=== PATIENT | female | born 1990 | race American Indian/Alaskan Native ===

== ENCOUNTER 2021-05-11 11:41 | Emergency (ER) | payer SELFPAY ==
[2021-05-11] MEDS ORDERED: hydrALAZINE 20 MG/1 ML INJ IV ONE (13:42)
[2021-05-11 14:55] LABS: Basophils # (Auto) 0.1 K/mm3 (0.0-0.1); Basophils % (Auto) 1.5 % (0.0-1.8); Eosinophils # (Auto) 0.2 K/mm3 (0.0-0.4); Eosinophils % (Auto) 2.7 % (0.0-4.3); Hemoglobin 16.9 gm/dl (10.1-14.3); Lymphocytes # (Auto) 2.9 K/mm3 (1.2-5.4); Lymphocytes % (Auto) 33.9 % (13.4-35.0); Mean Corpuscular HGB Conc 32 % (30-34); Mean Corpuscular Volume 88 fl (79-97); Monocytes # (Auto) 0.8 K/mm3 (0.0-0.8); Monocytes % (Auto) 9.3 % (0.0-7.3); Platelet Count 241 K/mm3 (140-440); Red Blood Count 6.03 M/mm3 (3.65-5.03); Red Cell Distribution Width 16.8 % (13.2-15.2)
[2021-05-11 15:04] LABS: Alanine Aminotransferase 15 units/L (7-56); Albumin 3.7 g/dL (3.9-5); BUN/Creatinine Ratio 18; Blood Urea Nitrogen 11 mg/dL (7-17); Calcium 8.6 mg/dL (8.4-10.2); Hemolysis Index 30
[2021-05-11] MEDS ORDERED: LEVALBUTEROL 0.63 MG/3 ML NEBU IH ONE (15:17)
[2021-05-11] MEDS ORDERED: FUROSEMIDE 20 MG/2 ML INJ IV ONE ×2 (15:33→17:30)
--- NOTE | 2021-05-11 15:36 | Emergency Department Report ---
<XANDERCODIE - Last Filed: 05/11/21 19:06> ED Chest Pain HPI - General Chief Complaint: High BP Stated Complaint: HTN , SOB AND PAIN ON SIDE Time Seen by Provider: 05/11/21 13:32 - Related Data Home Medications Medication Instructions Recorded Confirmed Last Taken Losartan [Cozaar] 1 tab PO DAILY 05/11/21 05/11/21 Unknown Metformin HCl 500 mg PO BID 05/11/21 05/11/21 Unknown Previous Rx's Medication Instructions Recorded Last Taken Type Albuterol Sulfate [Ventolin HFA] 2 puff IH Q6H PRN #1 unit 03/08/14 Unknown Rx Losartan [Cozaar] 50 mg PO QDAY #30 tablet 05/11/21 Unknown Rx amLODIPine 10 mg PO DAILY #30 tab 05/11/21 Unknown Rx hydroCHLOROthiazide [HCTZ] 25 mg PO QDAY #30 tablet 05/11/21 Unknown Rx Allergies Allergy/AdvReac Type Severity Reaction Status Date / Time amoxicillin [Amoxicillin] Allergy Hives Verified 02/26/15 17:26 ED Past Medical Hx - Medications Home Medications: Home Medications Medication Instructions Recorded Confirmed Last Taken Type Albuterol Sulfate [Ventolin HFA] 2 puff IH Q6H PRN #1 unit 03/08/14 07/16/14 Unknown Rx Losartan [Cozaar] 1 tab PO DAILY 05/11/21 05/11/21 Unknown History Losartan [Cozaar] 50 mg PO QDAY #30 tablet 05/11/21 Unknown Rx Metformin HCl 500 mg PO BID 05/11/21 05/11/21 Unknown History amLODIPine 10 mg PO DAILY #30 tab 05/11/21 Unknown Rx hydroCHLOROthiazide [HCTZ] 25 mg PO QDAY #30 tablet 05/11/21 Unknown Rx ED Course - Reevaluation(s) Reevaluation #1: 05/11/21 19:07 Received signout from previous physician. Patient is a 30-year-old female, who is morbidly obese, tobacco user, not vaccinated against COVID-19, with a reported history of hypertension and CHF, diagnosed at [facility] last year, noncompliant with medications, coming with a few days of chest tightness, shortness of breath, and weakness. Nursing team reports that patient is very dyspneic, desaturating to 90/91% on room air. Patient has received multiple antihypertensive here in the emergency room, including Lasix, hydralazine, and labetalol. She is still very symptomatic. Discussed this with the patient. Have recommended admission for blood pressure control, and medical optimization. Patient reports that she is not , and has not delivered her given in the past 6 weeks. to admit patient to the medical service. Awaiting callback from cardiology on-call. - Consultations Consultation #1: 05/11/21 19:10 Discussed history, physical, laboratory studies and imaging studies with cardiology on-call, Dr. Dolan. He will follow in consultation. 05/11/21 19:11 ED Medical Decision Making - Lab Data Result diagrams: 05/11/21 14:29 05/11/21 14:29 Vital Signs 05/11/21 05/11/21 05/11/21 12:59 13:35 13:38 Temperature 99.0 F Pulse Rate 118 H Pulse Rate [ Bilateral] Respiratory 16 21 Rate Respiratory Rate [Bilateral ] Blood Pressure Blood Pressure 227/156 [Right] O2 Sat by Pulse 98 98 97 Oximetry 05/11/21 05/11/21 05/11/21 13:39 13:40 14:00 Temperature Pulse Rate 126 H 126 H 112 H Pulse Rate [ Bilateral] Respiratory 21 21 22 Rate Respiratory Rate [Bilateral ] Blood Pressure 210/156 182/132 Blood Pressure 210/156 [Right] O2 Sat by Pulse 97 97 98 Oximetry 05/11/21 05/11/21 05/11/21 14:07 14:25 14:30 Temperature Pulse Rate 109 H 110 H 116 H Pulse Rate [ Bilateral] Respiratory 16 26 H Rate Respiratory Rate [Bilateral ] Blood Pressure 182/132 186/127 Blood Pressure 182/132 [Right] O2 Sat by Pulse 98 97 Oximetry 05/11/21 05/11/21 05/11/21 15:00 15:11 15:29 Temperature Pulse Rate 112 H 119 H 115 H Pulse Rate [ Bilateral] Respiratory 29 H 18 Rate Respiratory Rate [Bilateral ] Blood Pressure 181/124 172/111 Blood Pressure 181/124 [Right] O2 Sat by Pulse 96 98 Oximetry 05/11/21 05/11/21 05/11/21 15:30 15:40 16:00 Temperature Pulse Rate 114 H 106 H Pulse Rate [ 98 H Bilateral] Respiratory 25 H Rate Respiratory 16 Rate [Bilateral ] Blood Pressure 172/111 179/121 Blood Pressure [Right] O2 Sat by Pulse 95 96 Oximetry 05/11/21 05/11/21 05/11/21 16:30 16:38 17:00 Temperature Pulse Rate 102 H 104 H 106 H Pulse Rate [ Bilateral] Respiratory 17 30 H 28 H Rate Respiratory Rate [Bilateral ] Blood Pressure 164/100 171/111 Blood Pressure 164/100 [Right] O2 Sat by Pulse 96 98 96 Oximetry 05/11/21 05/11/21 05/11/21 17:30 18:00 18:52 Temperature Pulse Rate 113 H 110 H 115 H Pulse Rate [ Bilateral] Respiratory 31 H 20 22 Rate Respiratory Rate [Bilateral ] Blood Pressure 171/111 192/124 Blood Pressure 195/123 [Right] O2 Sat by Pulse 96 95 97 Oximetry Lab Results 05/11/21 05/11/21 05/11/21 Range/Units 14:29 14:29 14:29 WBC 8.7 (4.5-11.0) K/mm3 RBC 6.03 H (3.65-5.03) M/mm3 Hgb 16.9 H (10.1-14.3) gm/dl Hct 53.0 H (30.3-42.9) % MCV 88 (79-97) fl MCH 28 (28-32) pg MCHC 32 (30-34) % RDW 16.8 H (13.2-15.2) % Plt Count 241 (140-440) K/mm3 Lymph % (Auto) 33.9 (13.4-35.0) % [place] % (Auto) 9.3 H (0.0-7.3) % Eos % (Auto) 2.7 (0.0-4.3) % Baso % (Auto) 1.5 (0.0-1.8) % Lymph # (Auto) 2.9 (1.2-5.4) K/mm3 [place] # (Auto) 0.8 (0.0-0.8) K/mm3 Eos # (Auto) 0.2 (0.0-0.4) K/mm3 Baso # (Auto) 0.1 (0.0-0.1) K/mm3 Seg Neutrophils % 52.6 (40.0-70.0) % Seg Neutrophils # 4.6 (1.8-7.7) K/mm3 D-Dimer 225.66 (0-234) ng/mlDDU Sodium 137 (137-145) mmol/L Potassium 4.0 (3.6-5.0) mmol/L Chloride 100.7 (98-107) mmol/L Carbon Dioxide 22 (22-30) mmol/L Anion Gap 18 mmol/L BUN 11 (7-17) mg/dL Creatinine 0.6 (0.6-1.2) mg/dL Estimated GFR > 60 ml/min BUN/Creatinine Ratio 18 % Glucose 148 H (65-100) mg/dL Calcium 8.6 (8.4-10.2) mg/dL Total Bilirubin 0.70 (0.1-1.2) mg/dL AST 16 (5-40) units/L ALT 15 (7-56) units/L Alkaline Phosphatase 117 (35-129) units/L Troponin T < 0.010 (0.00-0.029) ng/mL NT-Pro-B Natriuret Pep (0-450) pg/mL Total Protein 6.9 (6.3-8.2) g/dL Albumin 3.7 L (3.9-5) g/dL Albumin/Globulin Ratio 1.2 % HCG, Qual (Negative) 05/11/21 05/11/21 05/11/21 Range/Units 14:29 14:29 16:18 WBC (4.5-11.0) K/mm3 RBC (3.65-5.03) M/mm3 Hgb (10.1-14.3) gm/dl Hct (30.3-42.9) % MCV (79-97) fl MCH (28-32) pg MCHC (30-34) % RDW (13.2-15.2) % Plt Count (140-440) K/mm3 Lymph % (Auto) (13.4-35.0) % [place] % (Auto) (0.0-7.3) % Eos % (Auto) (0.0-4.3) % Baso % (Auto) (0.0-1.8) % Lymph # (Auto) (1.2-5.4) K/mm3 [place] # (Auto) (0.0-0.8) K/mm3 Eos # (Auto) (0.0-0.4) K/mm3 Baso # (Auto) (0.0-0.1) K/mm3 Seg Neutrophils % (40.0-70.0) % Seg Neutrophils # (1.8-7.7) K/mm3 D-Dimer (0-234) ng/mlDDU Sodium (137-145) mmol/L Potassium (3.6-5.0) mmol/L Chloride (98-107) mmol/L Carbon Dioxide (22-30) mmol/L Anion Gap mmol/L BUN (7-17) mg/dL Creatinine (0.6-1.2) mg/dL Estimated GFR ml/min BUN/Creatinine Ratio % Glucose (65-100) mg/dL Calcium (8.4-10.2) mg/dL Total Bilirubin (0.1-1.2) mg/dL AST (5-40) units/L ALT (7-56) units/L Alkaline Phosphatase (35-129) units/L Troponin T < 0.010 (0.00-0.029) ng/mL NT-Pro-B Natriuret Pep 1007 H (0-450) pg/mL Total Protein (6.3-8.2) g/dL Albumin (3.9-5) g/dL Albumin/Globulin Ratio % HCG, Qual Negative (Negative) - Radiology Data Radiology results: report reviewed CHEST 1 VIEW 05/11/2021 4:09 PM INDICATION / CLINICAL INFORMATION: SOB. COMPARISON: None available. FINDINGS: SUPPORT DEVICES: None. HEART / MEDIASTINUM: There is enlargement of the cardiac silhouette. LUNGS / PLEURA: There is increase in interstitial markings bilaterally likely representing edema. No pneumothorax. ADDITIONAL FINDINGS: No significant additional findings. IMPRESSION: 1. There is increase in interstitial markings likely representing edema. There is enlargement of the cardiac silhouette. Signer Name: James Lambert MD Signed: 05/11/2021 2:31 PM Workstation Name: [id number] ED Disposition Clinical Impression: Hypertensive urgency, malignant, Body mass index between 30-39, adult, Encounter for tobacco use cessation counseling, COVID-19 vaccination not done Acute CHF Qualifiers: Heart failure type: unspecified Qualified Code(s): I50.9 - Heart failure, unspecified Disposition: 09 ADMITTED INPATIENT Is pt being admited?: Yes Does the pt Need Aspirin: No Condition: Stable Prescriptions: amLODIPine 10 mg PO DAILY #30 tab Losartan [Cozaar] 50 mg PO QDAY #30 tablet hydroCHLOROthiazide [HCTZ] 25 mg PO QDAY #30 tablet Referrals: PRIMARY CARE, [Primary Care Provider] - 3-5 Days Forms: Work/School Release Form(ED) <JEFF SHABAZZ - Last Filed: 05/12/21 06:13> ED Chest Pain HPI - General Source: patient Mode of arrival: Ambulatory Limitations: No Limitations - History of Present Illness Initial Comments: 30-year-old -[place]i female presents to the emergency department with complaint of a 1 week history of some left-sided chest pain and shortness of breath with exertion. The chest pain is intermittent, sharp, and usually occurs at the patient is coughing. She denies any fever, lower extremity swelling, nausea, vomiting, back pain or diaphoresis. The patient does present with extremely elevated blood pressure but says that she has been out of her medication for multiple months. The patient was previously on losartan 100 mg and Metformin. She has a past medical history of hypertension, diabetes, asthma. She is a tobacco smoker. No recent travel or sick contacts at home. The patient is not vaccinated against COVID-19. She does not have a primary care provider. Heart Score - HEART Score History: Slightly suspicious EKG: Normal Age: < 45 Risk factors: > 3 risk factors or hx of atherosclerotic disease Troponin: < normal limit HEART Score: 2 - EKG Read Time Time EKG Completed: 13:46 EKG Read Time: 13:50 - Critical Actions Critical Actions: 0-3 pts:0.9-1.7%risk of adverse cardiac event.Candidate for discharge ED Review of Systems ROS: Stated complaint: HTN , SOB AND PAIN ON SIDE Other details as noted in HPI Comment: All other systems reviewed and negative Constitutional: denies: chills, fever Eyes: denies: eye pain, vision change ENT: denies: ear pain, throat pain Respiratory: cough, SOB with exertion Cardiovascular: chest pain. denies: edema Gastrointestinal: denies: abdominal pain, vomiting Genitourinary: denies: dysuria, discharge Musculoskeletal: denies: back pain, arthralgia Skin: denies: rash, lesions Neurological: denies: headache, weakness ED Past Medical Hx - Past Medical History Hx Hypertension: Yes Hx Diabetes: Yes Hx Asthma: Yes Additional medical history: Ovarian cysts - Social History Substance Use Type: None ED Physical Exam - General Limitations: No Limitations - Other Other exam information: GENERAL: The patient is well-developed well-nourished. HENT: Normocephalic. Atraumatic. Patient has moist mucous membranes. EYES: Extraocular motions are intact. NECK: Supple. Trachea is midline. CHEST/LUNGS: Coarse breath sounds. Mild tachypnea. There is no respiratory distress noted. HEART/CARDIOVASCULAR: Regular. There is mild to moderate tachycardia. There is no murmur. ABDOMEN: Abdomen is soft, nontender. Patient has normal bowel sounds. Morbidly obese habitus. SKIN: Skin is warm and dry. NEURO: The patient is awake, alert, and oriented. The patient is cooperative. The patient has no focal neurologic deficits. Normal speech. MUSCULOSKELETAL: There is no tenderness or deformity. There is no limitation range of motion. ED Course Vital Signs 05/11/21 05/11/21 05/11/21 12:59 13:35 13:38 Temperature 99.0 F Pulse Rate 118 H Pulse Rate [ Bilateral] Respiratory 16 21 Rate Respiratory Rate [Bilateral ] Blood Pressure Blood Pressure 227/156 [Right] O2 Sat by Pulse 98 98 97 Oximetry 05/11/21 05/11/21 05/11/21 13:39 13:40 14:00 Temperature Pulse Rate 126 H 126 H 112 H Pulse Rate [ Bilateral] Respiratory 21 21 22 Rate Respiratory Rate [Bilateral ] Blood Pressure 210/156 182/132 Blood Pressure 210/156 [Right] O2 Sat by Pulse 97 97 98 Oximetry 05/11/21 05/11/21 05/11/21 14:07 14:25 14:30 Temperature Pulse Rate 109 H 110 H 116 H Pulse Rate [ Bilateral] Respiratory 16 26 H Rate Respiratory Rate [Bilateral ] Blood Pressure 182/132 186/127 Blood Pressure 182/132 [Right] O2 Sat by Pulse 98 97 Oximetry 05/11/21 05/11/21 05/11/21 15:00 15:11 15:29 Temperature Pulse Rate 112 H 119 H 115 H Pulse Rate [ Bilateral] Respiratory 29 H 18 Rate Respiratory Rate [Bilateral ] Blood Pressure 181/124 172/111 Blood Pressure 181/124 [Right] O2 Sat by Pulse 96 98 Oximetry 05/11/21 05/11/21 05/11/21 15:30 15:40 16:00 Temperature Pulse Rate 114 H 106 H Pulse Rate [ 98 H Bilateral] Respiratory 25 H Rate Respiratory 16 Rate [Bilateral ] Blood Pressure 172/111 179/121 Blood Pressure [Right] O2 Sat by Pulse 95 96 Oximetry 05/11/21 05/11/21 05/11/21 16:30 16:38 17:00 Temperature Pulse Rate 102 H 104 H 106 H Pulse Rate [ Bilateral] Respiratory 17 30 H 28 H Rate Respiratory Rate [Bilateral ] Blood Pressure 164/100 171/111 Blood Pressure 164/100 [Right] O2 Sat by Pulse 96 98 96 Oximetry 05/11/21 05/11/21 05/11/21 17:30 18:00 18:52 Temperature Pulse Rate 113 H 110 H 115 H Pulse Rate [ Bilateral] Respiratory 31 H 20 22 Rate Respiratory Rate [Bilateral ] Blood Pressure 171/111 192/124 Blood Pressure 195/123 [Right] O2 Sat by Pulse 96 95 97 Oximetry 05/11/21 05/11/21 05/12/21 19:50 20:31 02:41 Temperature Pulse Rate 110 H 109 H 77 Pulse Rate [ Bilateral] Respiratory 20 17 Rate Respiratory Rate [Bilateral ] Blood Pressure 200/125 Blood Pressure 166/104 [Right] O2 Sat by Pulse 96 99 Oximetry GER score - Ger Score Age > 65: (0) No Aspirin use within the Past 7 Days: (0) No 3 or more CAD Risk Factors: (1) Yes 2 or more Angina events in past 24 hrs: (1) Yes Known CAD with more than 50% Stenosis: (0) No Elevated Cardiac Markers: (0) No ED Medical Decision Making - Lab Data Result diagrams: 05/11/21 14:29 05/11/21 14:29 - EKG Data -: EKG Interpreted by Me EKG shows normal: sinus rhythm, axis, intervals, QRS complexes, ST-T waves Rate: tachycardia (112 bpm) - EKG Data When compared to previous EKG there are: previous EKG unavailable Interpretation: normal EKG (With tachycardia 112 bpm) - Radiology Data Radiology results: image reviewed interpreted by me: Chest x-ray shows pulmonary vascular congestion and some interstitial edema. No pneumothorax. No widened mediastinum. - Medical Decision Making This patient presents with a week of intermittent left-sided chest discomfort, as well as some shortness of breath that worsens with exertion. Patient has some tachycardia but otherwise heart sounds are normal to auscultation. There are some coarse breath sounds heard. There is tachypnea but no accessory muscle use. EKG shows sinus tachycardia but otherwise no morphology consistent with ST elevation myocardial infarction. Chest x-ray shows some pulmonary vascular congestion and interstitial edema. Patient presented with extremely elevated blood pressure with a history of hypertension and medication noncompliance. The patient has been given a dose of hydralazine and labetalol with some improvement. Patient will be given a dose of Xopenex and a dose of Lasix. Labs have been mostly unremarkable thus far except for an elevated proBNP of about 1000. I am still waiting for a D-dimer level. If positive, the patient will need a CT angiography of the chest or a VQ scan. This patient will be signed out to my colleague, Dr. Gale, who will reevaluate the patient and assist with further disposition. Critical Care Time: No Critical care attestation.: If time is entered above; I have spent that time in minutes in the direct care of this critically ill patient, excluding procedure time. ED Disposition Is pt being admited?: Yes
[2021-05-11] MEDS ORDERED: NICOTINE 14 MG/24 HR PATCH TD ONE (19:05)
[2021-05-11] MEDS ORDERED: hydroCHLOROthiazide 25 MG TAB PO ONE (19:05)
[2021-05-11] MEDS ORDERED: LOSARTAN 50 MG TAB PO STA (19:05)
[2021-05-11] MEDS ORDERED: ASPIRIN 81 MG TAB CHEW PO ONE (19:05)
[2021-05-11] MEDS ORDERED: hydrALAZINE 25 MG TAB PO ONE (19:06)
[2021-05-11 20:43] VITALS: BP 166/104
--- NOTE | 2021-05-14 10:03 | Electrocardiograph Report ---
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
== END 2021-05-12 01:41 | disposition admitted as inpatient to this hospital (09) ==
LOC: ED 11:41
DX: I10 Essential (primary) hypertension (principal); E11.9 Type 2 diabetes mellitus without complications; J45.909 Unspecified asthma, uncomplicated; R07.89 Other chest pain; R06.02 Shortness of breath; Z98.890 Other specified postprocedural states
CPT/HCPCS: 36415; 71045; 80053; 83880; 84484; 84703; 85025; 85379; 93005; 94644; 96374; 96375; 99284; J0360; J1940; J3490

== ENCOUNTER 2021-05-11 11:42 | Emergency (ER) | payer SELFPAY ==
[2021-05-11] MEDS ORDERED: hydrALAZINE 20 MG/1 ML INJ ONE (14:23)
[2021-05-11] MEDS ORDERED: LEVALBUTEROL 0.63 MG/3 ML NEBU IH ONE (15:33)
== END 2021-05-12 07:51 ==
LOC: ED 11:42
DX: I10 Essential (primary) hypertension (principal); R06.02 Shortness of breath; M79.18 Myalgia, other site; Z53.21 Procedure and treatment not carried out due to patient leaving prior to being seen by health care provider
CPT/HCPCS: J3490; J0360